=== PATIENT | female | born 1990 ===

== ENCOUNTER 2017-06-05 14:21 | Emergency (ER) | payer MEDICAID, OTHER ==
[2017-06-05 14:22] VITALS: BMI 28.7
[2017-06-05 14:29] VITALS: BP 143/82; PULSE 100; RESP 16; TEMP 99.3; O2SAT 99
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
--- NOTE | 2017-06-05 15:57 | RAD ---
PROCEDURE: Radiographs of the Chest and Left Ribs. HISTORY: Trauma COMPARISON: 06/18/2016 no. TECHNIQUE: Frontal radiograph of the chest and multiple oblique radiographs of the left ribs were obtained. FINDINGS: LEFT RIBS: No fracture or focal lesion visualized. LUNGS: Clear. PLEURA: No pneumothorax or pleural fluid. CARDIOVASCULAR: Normal sized heart. No pulmonary vascular congestion. OTHER FINDINGS: None. IMPRESSION: No acute rib fracture. Clear lungs.
== END 2017-06-05 16:55 | disposition home or self-care (01) ==
LOC: H.ER 14:21
DX: S20.219A Contusion of unspecified front wall of thorax, initial encounter (principal); V43.52XA Car driver injured in collision with other type car in traffic accident, initial encounter; Y92.410 Unspecified street and highway as the place of occurrence of the external cause

== ENCOUNTER 2018-06-01 21:52 | Emergency (ER) | payer MEDICAID, OTHER ==
--- NOTE | 2018-06-02 00:54 | OBHP ---
Datetime: 06/02/2018 00:11 IP Adm Impression: , intrauterine IP Admit Plan: Observation/Evaluation; Discharge home Admit Comment, IP Provider: 28 y/o , 30.3 wks based on 1st trimester US with ARACELY of 08/07/18 presents to [facility] complaining of lower abdominal and back pain. Abdominal pain is in RLQ area, started 5 pm today which was 10/10 sharp, continuous which lasted about 45 mins before gradually subsiding. [facility] + UA and was started on Ce phalexin 500 mg QID. Patient also reports feeling dysuria, frequency, nausea , loose stool and subjec tive fevers for last 2-3 days. Denies any vomiting, chills, CP, SOb, dizziness. Reports feeling good movements. Denies VB or LOF. PNC: [facility] course: + UTI receiving treatement, Prenatl records unavailable PMHx: Asthama well controlled with albuterol PSHx: Denies Allergies: NKDA F/H: father HTN Medications: PNVs, Cefelaxin 500 mg QID, tylenol PRN Social Hx: Denies alcohol/smoking/drugs PE general: NAD Chest: RRR, S1 S2 present Lungs: CTA B/L Abdomen: + suprapubic tenderness, mild RLQ tenderness, No Mcburney point tenderness, No rebaound, guarding. Back: No CVA Ext: No pedal edema, No calf tenderness A/P: 28 y/o , 30.3 wks, diagnosed with UTI today presents to [facility] complaining of lower abdo morgan and back pain. - EFM and toco monitoring with reactive NST - Not in labor - Symptoms consistent with UTI - Patient advised to continue Cephalexin 500 mg QID x 5 days - Maintain hydration - Labor precautions provided - Patient to D/C home, continue Abx, tylenol 500 mg Q4-6 hr as needed - F/U on urine culture, follow up with PNC as scheduled Case discussed with attending Ruel Bhat, PGY1 OB Hospitalist Addendum: Pt seen and examined by me. Agree w/ above. 27 yo at 30+3 wks c /o RLQ pain that radiated to the back, relieved w/ tylenol. Pt started on Cephalexin 500 qid x 5 day s by primary OB today. FHT reactive. Pt encouraged to complete her abx course and f/u w/ her OB. Pt discharged home w/ labor precautions. (ES) FHR - Baseline A Provider: 130 Comments, ACOG Physical Exam: general: NAD Chest: RRR, S1 S2 present Lungs: CTA B/L Abdomen: + suprapubic tenderness, mild RLQ tenderness, No Mcburney point tenderness, No rebaound, guarding. Back: No CVA Ext: No pedal edema, No calf tenderness EGA AdmitDate IP: 30.3 Vital Signs Provider: Reviewed IP Chief Complaint: Signs/symptoms UTI NICHD Variability Prov Fetus A: Moderate 6-25bpm NICHD Accel Fetus A IP Provider: [id number] FHR Category Provider Fetus A: Category I NICHD Decel Fetus A IP Provider: None
--- NOTE | 2018-06-02 00:56 | OBDCSUM ---
Datetime: 06/02/2018 00:27 Discharged to, Provider: Home Follow up at, Provider: [facility] Disch Instr Activity: Normal activity Disch Instr Diet: Regular Discharge Instructions, Provider: Routine instructions given Discharge Time: 06/02/2018 00:27 Follow up in weeks, Provider: 06/05/2018 Disch Referrals: None Discharge Diagnosis Prov Other: UTI at 30+ weeks
[2018-06-05 18:11] VITALS: BP 106/63; PULSE 97; TEMP 98.9
== END 2018-06-02 00:27 | disposition home or self-care (01) ==
LOC: H.EROB2 21:52
DX: O26.93 Pregnancy related conditions, unspecified, third trimester (principal); R10.2 Pelvic and perineal pain; Z3A.30 30 weeks gestation of pregnancy